=== PATIENT | male | born 1990 | race Caucasian/White ===

== ENCOUNTER 2018-01-09 17:19 | Emergency (ER) | payer OTHER ==
--- NOTE | 2018-01-09 17:33 | EDM.PDOC ---
ED HPI GENERAL MEDICAL PROBLEM - General Chief Complaint: Upper Extremity Injury/Pain Stated Complaint: INJURY RT ARM AT WORK Time Seen by Provider: 01/09/18 17:29 - History of Present Illness INITIAL COMMENTS - FREE TEXT/NARRATIVE: HISTORY AND PHYSICAL: History of present illness: Patient 27-year-old male presents status post injury with a sandblasted involving his right forearm this was treated and cleaned on the scene with a product marketing specialist and he presents here now for reevaluation this occurred earlier today he denies fever chills nausea vomiting and the other trauma or concern he states he is up-to-date on his tetanus Review of systems: As per history of present illness and below otherwise all systems reviewed and negative. Past medical history: As per history of present illness and as reviewed below otherwise noncontributory. Surgical history: As per history of present illness and as reviewed below otherwise noncontributory. Social history: No reported history of drug or alcohol abuse. Family history: As per history of present illness and as reviewed below otherwise noncontributory. Physical exam: HEENT: Atraumatic, normocephalic, pupils reactive, negative for conjunctival pallor or scleral icterus, mucous membranes moist, throat clear, neck supple, nontender, trachea midline. Lungs: Clear to auscultation, breath sounds equal bilaterally, chest nontender. Heart: S1S2, regular, negative for clicks, rubs, or JVD. Abdomen: Soft, nondistended, nontender. Negative for masses or hepatosplenomegaly. Negative for costovertebral tenderness. Pelvis: Stable nontender. Genitourinary: Deferred. Rectal: Deferred. Extremities: Patient has a non-circumferential involvement of the volar aspect primarily of his right forearm with tattooing and abrasion from the sandblast injury. CMS neurovascular exam is unremarkable Neuro: Awake, alert, oriented. Cranial nerves II through XII unremarkable. Cerebellum unremarkable. Motor and sensory unremarkable throughout. Exam nonfocal. Diagnostics: None Therapeutics: His abrasion and injury was scrubbed and irrigated dressed with bacitracin Impression: #1 acute injury right forearm Definitive disposition and diagnosis as appropriate pending reevaluation and review of above. Right Lower Arm Pain Score (Numeric/FACES): 1 - Related Data Allergies Allergy/AdvReac Type Severity Reaction Status Date / Time No Known Allergies Allergy Verified 01/09/18 17:31 Home Meds: Home Meds . [No Known Home Meds] 01/09/18 [History] Review of Systems - Review of Systems Review Of Systems: ROS reveals no pertinent complaints other than HPI. ED EXAM, GENERAL - Physical Exam Exam: See Below (See dictation) Course - Vital Signs Last Recorded V/S: Last Vital Signs Temp 36.4 C 01/09/18 17:28 Pulse 76 01/09/18 17:28 Resp 18 01/09/18 17:28 BP 145/68 H 01/09/18 17:28 Pulse Ox 97 01/09/18 17:28 - Orders/Labs/Meds Orders: Active Orders 24 hr Category Date Time Status Forearm 2V Rt [CR] Stat Exams 01/09/18 17:33 Taken Meds: Medications Discontinued Medications Generic Name Dose Route Start Last Admin Trade Name Freq PRN Reason Stop Dose Admin Bacitracin 3 dose 01/09/18 18:30 Bacitracin Oint 1 Gm TOP 01/09/18 18:31 ONETIME ONE Cefazolin Sodium 1 gm 01/09/18 18:07 Ancef IM 01/09/18 18:08 ONETIME ONE Departure - Departure Time of Disposition: 18:34 Disposition: Home, Self-Care 01 Condition: Good Clinical Impression: Forearm injury - Discharge Information Referrals: PCP,None [Primary Care Provider] - Forms: ED Department Discharge Additional Instructions: The following information is given to patients seen in the emergency department who are being discharged to home. This information is to outline your options for follow-up care. We provide all patients seen in our emergency department with a follow-up referral. The need for follow-up, as well as the timing and circumstances, are variable depending upon the specifics of your emergency department visit. If you don't have a primary care physician on staff, we will provide you with a referral. We always advise you to contact your personal physician following an emergency department visit to inform them of the circumstance of the visit and for follow-up with them and/or the need for any referrals to a consulting specialist. The emergency department will also refer you to a specialist when appropriate. This referral assures that you have the opportunity for followup care with a specialist. All of these measure are taken in an effort to provide you with optimal care, which includes your followup. Under all circumstances we always encourage you to contact your private physician who remains a resource for coordinating your care. When calling for followup care, please make the office aware that this follow-up is from your recent emergency room visit. If for any reason you are refused follow-up, please contact the [facility] emergency department at and asked to speak to the emergency department charge raquel [facility] [address] [place] [id number] Keflex as prescribed Motrin/Tylenol as directed follow-up with plastic surgery call in a.m. to schedule appointment return as needed as discussed. [] - My Orders Last 24 Hours: My Active Orders 01/09/18 17:33 Forearm 2V Rt [CR] Stat - Assessment/Plan Last 24 Hours: My Active Orders 01/09/18 17:33 Forearm 2V Rt [CR] Stat
[2018-01-09] MEDS ORDERED: ceFAZolin 1 GM Vial IM ONE (18:07)
[2018-01-09] MEDS ORDERED: Bacitracin Oint 1 GM U/D Packet TOP ONE (18:30)
[2018-01-09] MEDS ORDERED: Water For Injection, Sterile 20 ML ONE (18:33)
--- NOTE | 2018-01-11 14:46 | CR ---
EXAM DATE: 01/09/18 PATIENT'S AGE: 27 Patient: SONNY COSTA Facility: [place], [place] Site . Site : 1990 Study: XRay Extremity Right FOREARM [id number] 5:59:53 PM Ordering Physician: Doctor Gillis Final Report: INDICATION: Forearm pain. TECHNIQUE: Forearm radiograph 2 views COMPARISON: None FINDINGS: Bones: Alignment is normal. No acute fractures or aggressive osseous lesions seen. Joint spaces: The visualized radiocarpal and elbow joints are unremarkable. The elbow joint is not profiled and if there is pain or tenderness in this region, dedicated views of the elbow are recommended. Soft tissues: Scattered punctate soft tissue calcifications, medial aspect of the right forearm, uncertain etiology and significance. IMPRESSION: 1. Right forearm, no acute osseous injury. 2. Punctate radiodensities in the soft tissues, medial forearm. Dictated by Rohan Campos MD @ 01/09/2018 6:08:54 PM Dictated by: Rohan Campos MD @ 01/09/2018 18:09:07 (Electronic Signature) Report Signed by Proxy. MICHAEL
== END 2018-01-09 19:00 | disposition home or self-care (01) ==
LOC: MW.ED 17:19
DX: S50.811A Abrasion of right forearm, initial encounter (principal); F17.210 Nicotine dependence, cigarettes, uncomplicated; X58.XXXA Exposure to other specified factors, initial encounter; Y99.0 Civilian activity done for income or pay
CPT/HCPCS: 73090; 96372; 99283; J0690; 99282